=== PATIENT | female | born 1965 | race Hispanic/Latino ===

== ENCOUNTER 2017-12-07 09:06 | Day surgery (SDC) | payer OTHER ==
[2017-12-07 10:15] VITALS: BMI 22.2
[2017-12-07] MEDS ORDERED: Lactated Ringer's 500 ML IV ONE (10:17)
[2017-12-07] MEDS ORDERED: Propofol 10 mg/ml Inj (20 ML) ONE (11:12)
[2017-12-07 12:06] VITALS: TEMP 97.2
[2017-12-07 12:19] VITALS: BP 106/70; PULSE 78; RESP 14; O2SAT 99
== END 2017-12-07 12:28 | disposition home or self-care (01) ==
LOC: H.ENDO 09:06
PROVIDERS: ATTEND Internal Medicine Gastroenterology
DX: K52.9 Noninfective gastroenteritis and colitis, unspecified (principal); K63.89 Other specified diseases of intestine; K64.8 Other hemorrhoids
CPT/HCPCS: 45380; 88305; J2001; J2704; J7120